=== PATIENT | female | born 1970 | race Caucasian/White ===

== ENCOUNTER 2022-08-10 05:48 | Day surgery (SDC) | payer BC ==
[2022-08-07 10:13] LABS: BASOPHILS % (AUTO) 0.5 % (0-1); EOSINOPHILS # (AUTO) 0.3 X10'3 (0-0.9); EOSINOPHILS % (AUTO) 4.3 % (0-6); MEAN CORPUSCULAR HEMOGLOBIN 29.8 PG (27.0-31.0); MEAN CORPUSCULAR HGB CONC 32.8 g/dL (33.0-36.5); MEAN CORPUSCULAR VOLUME 90.6 FL (78-98); MEAN PLATELET VOLUME 8.8 FL (7.4-10.4); MONOCYTES # (AUTO) 0.6 X10'3 (0-0.9); MONOCYTES % (AUTO) 8.6 % (2-12); NEUTROPHILS % (AUTO) 57.6 % (42-75); PRE OP HEMATOCRIT 38.8 % (35.0-45.0); PRE OP HEMOGLOBIN 12.7 g/dL (12.0-16.0); PRE OP PLATELET COUNT 354 X10'3 (140-440); RED BLOOD COUNT 4.28 X10'6 (4.20-5.60); RED CELL DISTRIBUTION WIDTH 13.8 % (11.5-14.5)
[2022-08-07 10:25] LABS: ALBUMIN 3.8 G/DL (3.4-5.0); ALBUMIN/GLOBULIN RATIO 1.1 (1.1-1.5); ALKALINE PHOSPHATASE 109 IU/L (46-116); BLOOD UREA NITROGEN 15 MG/DL (7-18); BUN/CREATININE RATIO 21.4 (6.6-38.0); CALCIUM 9.4 MG/DL (8.5-10.1); CHLORIDE 107 MMOL/L (99-107); PRE OP ALT 60 U/L (30-65); PRE OP ANION GAP 5 (8-16); PRE OP AST 33 U/L (10-37); PRE OP BILIRUB, TOTAL 0.4 MG/DL (0.0-1.0); PRE OP GLUCOSE 90 MG/DL (70-104); PRE OP POTASSIUM 4.3 MMOL/L (3.4-5.1); PRE OP SODIUM 144 MMOL/L (135-145); TOTAL CARBON DIOXIDE 31.6 MMOL/L (24-32); TOTAL PROTEIN 7.3 G/DL (6.4-8.2); eGFR 88 ML/MIN
[~2022-08-10] VITALS: Ht 162.6 cm; Wt 86.0 kg
[2022-08-10] VITALS (7 sets, daily range): BP systolic 115–140; BP diastolic 64–86
[~2022-08-10 05:48] MED LIST: CITA20TA2 PO; HYDR-3972; SUMA50TA17; TRAM50TA2; ceFAZolin inj. 2,000 MG in dextrose 5%-water 100 ML IV ONE; famotidine 20mg tablet PO ONE; ringers solution, lacted 1,000 ML IV SCH
[2022-08-10] MEDS ORDERED: BUPIVAcaine 0.5% inj/PF 30 ML ONE (06:44)
[2022-08-10] MEDS ORDERED: sevoflurane 250ml liquid IH ONE (07:20)
[2022-08-10] MEDS ORDERED: fentaNYL/PF 50MCG/1 ML 2ML syringe ONE (07:34)
[2022-08-10] MEDS ORDERED: midazolam 1 mg/ML 2ml injection ONE (07:35)
[2022-08-10] MEDS ORDERED: propofol inj 20 ML IV ONE ×2 (07:55)
[2022-08-10] MEDS ORDERED: BUPIVAcaine/PF 7.5mg/ml (0.75%) 10ml vial ONE (07:55)
[2022-08-10] MEDS ORDERED: LIDOcaine 1%/PF 5ML 10 MG/ML VIAL ONE (07:55)
[2022-08-10] MEDS ORDERED: 0.9 % SODIUM CHLORIDE 10 ML VIAL ONE (07:55)
[2022-08-10] MEDS ORDERED: ondansetron/PF 4mg/2ml inj ONE (07:55)
[2022-08-10] MEDS ORDERED: dexamethasone sod phosphate 4mg/ml inj. ONE (07:55)
[2022-08-10] MEDS ORDERED: morphine 4 MG/ML inj SYRINge IV PRN (08:05)
[2022-08-10] MEDS ORDERED: proCHLORperazine 10 MG/2 ml inj IV PRN (08:05)
[2022-08-10] MEDS ORDERED: ringers solution, lacted 1,000 ML IV SCH (08:05)
[2022-08-10] MEDS ORDERED: morphine 2 MG/ML inj. syringe IV PRN (08:05)
[2022-08-10] MEDS ORDERED: ondansetron/PF 4mg/2ml inj IV PRN (08:05)
[2022-08-10] MEDS ORDERED: meperidine/PF 25mg/ml syringe IV PRN ×3 (08:05)
[2022-08-10] MEDS ORDERED: BUPIVAcaine 0.5% inj/PF 30 ml vial IJ ONE (08:18)
[2022-08-10] MEDS ORDERED: LIDOcaine 1%/PF 5ML 10 MG/ML VIAL IJ ONE (08:18)
--- NOTE | 2022-08-10 08:42 | NUR ---
Received from OR via , accompanied by Anesthesiologist TRIP AND OR NURSE and report given by Anesthesiolgist. PT IS DROWSY YET ABLE TO RESPOND TO VERBAL STIMULI. PT DENIES PAIN OR DISCOMFORT. 20G TO RT HAND. DRESSING IS GAUZE/ABD PAD WITH TUBE TOP FOR SECUREMENT. VSS Addendum: 08/10/22 at 0848 by Josselyn Nunez RN Amended: Links added.
--- NOTE | 2022-08-10 09:42 | NUR ---
I HAVE REVIEWED D/C INSTRUCTIONS WITH PATIENT AND THEY HAVE VERBALIZED UNDERSTANDING OF INSTRUCTIONS. PATIENT D/C HOME WITH ALL BELONGINGS AND FAMILY GAVE TRANSPORT Addendum: 08/10/22 at 0950 by Josselyn Nunez RN Amended: Links added.
== END 2022-08-10 09:42 | disposition home or self-care (01) ==
LOC: PAS 05:48
PROVIDERS: ATTEND Surgery
DX: C50.412 Malignant neoplasm of upper-outer quadrant of left female breast (principal); K21.9 Gastro-esophageal reflux disease without esophagitis; F32.9 Major depressive disorder, single episode, unspecified; G43.909 Migraine, unspecified, not intractable, without status migrainosus; G89.18 Other acute postprocedural pain; Z87.01 Personal history of pneumonia (recurrent); Z90.710 Acquired absence of both cervix and uterus; Z79.899 Other long term (current) drug therapy; Z88.5 Allergy status to narcotic agent; Z98.890 Other specified postprocedural states
CPT/HCPCS: 19301; 36415; 64450; 80053; 82948; 85025; 93005; J0690; J1100; J2250; J2270; J2405; J2704; J3010; J3490; J7030; J7060; J7120; S0020; Z7506; Z7508; Z7512; A4215; A4618; A6449; A7000

== ENCOUNTER 2023-09-23 14:44 | Outpatient (CLI) | payer BC ==
[~2023-09-23 14:44] MED LIST changes: -ceFAZolin inj. 2,000 MG in dextrose 5%-water 100 ML IV ONE; -famotidine 20mg tablet PO ONE; -ringers solution, lacted 1,000 ML IV SCH
== END 2023-09-23 23:59 | disposition home or self-care (01) ==
LOC: MRI 14:44
PROVIDERS: ATTEND Pediatrics Sports Medicine
DX: M54.50 Low back pain, unspecified (principal); M46.1 Sacroiliitis, not elsewhere classified; M54.32 Sciatica, left side
CPT/HCPCS: 72148